=== PATIENT | female | born 1960 | race Caucasian/White ===

== ENCOUNTER → 2016-09-17 | Outpatient (CLI) | payer OTHER ==
[~2016-09-17] MED LIST: ALLERCLEAR10 MG PO; AMITRIPTYLINE25 MG PO; BACTRIM DS 8001 TA1 PO; CEPHALEXIN500 M1 PO; LASIX20 MG PO; LEVOTHYROXIN0.075 MG PO; LEVOTHYROXINE0.2 MG PO; LOSARTAN POTASS25 M1 PO; NAPROSYN500 MG PO; POTASSIUM CHLO10 MEQ PO; PROAIR HFA8.5 GM INH; SYMBICORT1 AE1 INH; ULTRAM50 MG PO; VITAMIN D31000 IU PO
== END | disposition home or self-care (01) ==
LOC: RAD 10:37
DX: N20.0 Calculus of kidney (principal); Z96.0 Presence of urogenital implants

== ENCOUNTER → 2016-12-10 | Outpatient (CLI) | payer OTHER | END | disposition home or self-care (01) | LOC: RAD 10:28 | DX: N20.0 Calculus of kidney (principal); Z96.0 Presence of urogenital implants ==

== ENCOUNTER → 2017-02-12 | Outpatient (CLI) | payer OTHER | END | disposition home or self-care (01) | LOC: RAD 00:29 | DX: N20.0 Calculus of kidney (principal) ==

== ENCOUNTER → 2017-02-20 | Outpatient (CLI) | payer OTHER ==
[2017-02-20 13:12] LABS: BASO # 0.1 10*3/uL (0.0-0.1); BASO % 0.7 % (0.0-1.0); EOS # 0.2 10*3/uL (0.0-0.4); HEMATOCRIT 42.1 % (37.0-47.0); LYMPH # 2.1 10*3/uL (1.3-4.4); LYMPH % 20.3 % (27.0-41.0); MEAN CELL VOLUME 93.8 fl (81.0-99.0); MEAN CORPUSCULAR HGB CONC 30.9 g/dl (33.0-37.0); MEAN PLATELET VOLUME 9.7 fl (9.6-12.3); MONO # 0.8 10*3/uL (0.1-1.0); MONO % 7.9 % (3.0-9.0); NEUT # 7.1 10*3/uL (2.3-7.9); NEUT % 68.8 % (47.0-73.0); PLATELET COUNT AUTOMATED 378 10*3/uL (130-400); RED BLOOD COUNT 4.49 10*6/uL (4.10-5.10); RED CELL DISTRI WIDTH 13.6 % (0-14.5); WHITE BLOOD COUNT 10.2 10*3/uL (4.8-10.8)
[2017-02-20 13:13] LABS: BILIRUBIN NEGATIVE (NEGATIVE); BLOOD TRACE-INTACT (NEGATIVE); CLARITY SL CLOUDY (CLEAR); COLOR YELLOW (YELLOW); GLUCOSE NEGATIVE (NEGATIVE); KETONE NEGATIVE (NEGATIVE); LEUKO ESTERASE 3+ (NEGATIVE); NITRITE NEGATIVE (NEGATIVE); PROTEIN NEGATIVE (NEGATIVE); SPECIFIC GRAVITY <= 1.005 (1.005-1.030); UROBILINOGEN 0.2 E.U./dl (0.2-1.0)
[2017-02-20 13:20] LABS: URINE TP/CRE RATIO 0.2 (<0.21)
[2017-02-20 13:26] LABS: BACTERIA TRACE; WBC 21-30 wbc/hpf (0-5)
[2017-02-20 13:48] LABS: ALBUMIN 3.4 gm/dl (3.1-4.5); PHOSPHOROUS 2.1 mg/dL (2.5-4.9); POTASSIUM 3.4 mmol/L (3.5-5.1); URIC ACID 5.6 mg/dL (2.6-6.0)
[2017-02-20 13:53] LABS: THYROID STIM HORMONE (HS) 0.266 uIU/ml (0.358-4.75)
[2017-02-20 14:45] LABS: PTH INTACT 350.9 pg/mL (14.0-72.0); VITAMIN D, 25-HYDROXY 21.2 ng/mL (30-100)
== END | disposition home or self-care (01) ==
LOC: LAB 12:39
PROVIDERS: Internal Medicine Nephrology
DX: N18.3 Chronic kidney disease, stage 3 (moderate) (principal); E83.52 Hypercalcemia; N20.0 Calculus of kidney

== ENCOUNTER → 2017-03-06 | Outpatient (CLI) | payer OTHER | END | disposition home or self-care (01) | LOC: US 02-27 00:27 | DX: N13.30 Unspecified hydronephrosis (principal); N20.0 Calculus of kidney; N18.3 Chronic kidney disease, stage 3 (moderate) ==

== ENCOUNTER → 2017-03-07 | Outpatient (CLI) | payer OTHER | END | disposition home or self-care (01) | LOC: RAD 10:01 | DX: Z01.818 Encounter for other preprocedural examination (principal); N20.0 Calculus of kidney; N39.0 Urinary tract infection, site not specified ==

== ENCOUNTER → 2017-03-21 | Outpatient (CLI) | payer OTHER | END | disposition home or self-care (01) | LOC: RAD 10:27 | DX: N20.0 Calculus of kidney (principal); Z96.0 Presence of urogenital implants ==

== ENCOUNTER → 2017-07-08 | Outpatient (CLI) | payer OTHER | END | disposition home or self-care (01) | LOC: RAD 11:36 | DX: N20.0 Calculus of kidney (principal); Z90.49 Acquired absence of other specified parts of digestive tract; Z96.0 Presence of urogenital implants ==

== ENCOUNTER → 2017-09-02 | Outpatient (CLI) | payer OTHER | END | disposition home or self-care (01) | LOC: LAB 10:11 | DX: N20.0 Calculus of kidney (principal) ==

== ENCOUNTER → 2017-09-17 | Outpatient (CLI) | payer OTHER ==
[2017-09-17 13:02] LABS: BASO # 0.1 10*3/uL (0.0-0.1); BASO % 0.7 % (0.0-1.0); EOS # 0.1 10*3/uL (0.0-0.4); EOS % 1.5 % (1.0-4.0); HEMATOCRIT 43.2 % (37.0-47.0); HEMOGLOBIN 13.6 g/dl (12.0-16.0); LYMPH # 1.6 10*3/uL (1.3-4.4); LYMPH % 20.7 % (27.0-41.0); MEAN CELL VOLUME 90.4 fl (81.0-99.0); MEAN CORPUSCULAR HGB 28.5 pg (27.0-31.0); MEAN CORPUSCULAR HGB CONC 31.5 g/dl (33.0-37.0); MEAN PLATELET VOLUME 10.1 fl (9.6-12.3); MONO # 0.9 10*3/uL (0.1-1.0); MONO % 11.9 % (3.0-9.0); NEUT # 4.9 10*3/uL (2.3-7.9); NEUT % 64.9 % (47.0-73.0); PLATELET COUNT AUTOMATED 348 10*3/uL (130-400); RED BLOOD COUNT 4.78 10*6/uL (4.10-5.10); RED CELL DISTRI WIDTH 14.1 % (0-14.5); WHITE BLOOD COUNT 7.5 10*3/uL (4.8-10.8)
[2017-09-17 13:12] LABS: BILIRUBIN NEGATIVE (NEGATIVE); BLOOD NEGATIVE (NEGATIVE); CLARITY CLEAR (CLEAR); COLOR YELLOW (YELLOW); GLUCOSE NEGATIVE (NEGATIVE); KETONE NEGATIVE (NEGATIVE); LEUKO ESTERASE 1+ (NEGATIVE); NITRITE NEGATIVE (NEGATIVE); UROBILINOGEN 0.2 E.U./dl (0.2-1.0)
[2017-09-17 13:27] LABS: ALBUMIN 3.3 gm/dl (3.1-4.5); CREATININE 1.5 mg/dL (0.55-1.02); PHOSPHOROUS 1.8 mg/dL (2.5-4.9); POTASSIUM 3.6 mmol/L (3.5-5.1)
[2017-09-17 13:36] LABS: RBC 0-2 rbc/hpf (0-2)
[2017-09-17 16:00] LABS: VITAMIN D, 25-HYDROXY 50.3 ng/mL (30-100)
== END | disposition home or self-care (01) ==
LOC: LAB 12:36
PROVIDERS: Internal Medicine Nephrology
DX: N18.3 Chronic kidney disease, stage 3 (moderate) (principal); E87.6 Hypokalemia; N25.81 Secondary hyperparathyroidism of renal origin

== ENCOUNTER → 2017-10-30 | Outpatient (CLI) | payer OTHER | END | disposition home or self-care (01) | LOC: RAD 11:05 | DX: M51.37 Other intervertebral disc degeneration, lumbosacral region (principal); M17.0 Bilateral primary osteoarthritis of knee; M16.0 Bilateral primary osteoarthritis of hip; M19.021 Primary osteoarthritis, right elbow; M19.022 Primary osteoarthritis, left elbow; M19.011 Primary osteoarthritis, right shoulder; M19.012 Primary osteoarthritis, left shoulder; M47.896 Other spondylosis, lumbar region ==

== ENCOUNTER → 2017-11-24 | Outpatient (CLI) | payer OTHER | END | disposition home or self-care (01) | LOC: RAD 13:24 | DX: N20.0 Calculus of kidney (principal); Z90.49 Acquired absence of other specified parts of digestive tract; Z98.890 Other specified postprocedural states ==

== ENCOUNTER → 2017-12-19 | Outpatient (CLI) | payer OTHER | END | disposition home or self-care (01) | LOC: ORTHO 00:36 | DX: M19.032 Primary osteoarthritis, left wrist (principal) ==

== ENCOUNTER → 2018-01-28 | Outpatient (CLI) | payer OTHER ==
[2018-01-28 14:25] LABS: BASO # 0.1 10*3/uL (0.0-0.1); BASO % 0.5 % (0.0-1.0); EOS # 0.2 10*3/uL (0.0-0.4); EOS % 1.8 % (1.0-4.0); HEMATOCRIT 44.4 % (37.0-47.0); HEMOGLOBIN 13.6 g/dl (12.0-16.0); LYMPH # 1.9 10*3/uL (1.3-4.4); LYMPH % 16.7 % (27.0-41.0); MEAN CELL VOLUME 93.5 fl (81.0-99.0); MEAN CORPUSCULAR HGB 28.6 pg (27.0-31.0); MEAN CORPUSCULAR HGB CONC 30.6 g/dl (33.0-37.0); MEAN PLATELET VOLUME 10.2 fl (9.6-12.3); MONO # 0.9 10*3/uL (0.1-1.0); MONO % 8.1 % (3.0-9.0); NEUT # 8.3 10*3/uL (2.3-7.9); NEUT % 72.7 % (47.0-73.0); PLATELET COUNT AUTOMATED 336 10*3/uL (130-400); RED BLOOD COUNT 4.75 10*6/uL (4.10-5.10); RED CELL DISTRI WIDTH 15.5 % (0-14.5); WHITE BLOOD COUNT 11.4 10*3/uL (4.8-10.8)
[2018-01-28 14:28] LABS: BILIRUBIN NEGATIVE (NEGATIVE); BLOOD 1+ (NEGATIVE); CLARITY CLEAR (CLEAR); COLOR YELLOW (YELLOW); GLUCOSE NEGATIVE (NEGATIVE); KETONE NEGATIVE (NEGATIVE); LEUKO ESTERASE 2+ (NEGATIVE); NITRITE NEGATIVE (NEGATIVE); PH 6.5 (5.0-9.0); UROBILINOGEN 0.2 E.U./dl (0.2-1.0)
[2018-01-28 14:33] LABS: URINE CREATININE RANDOM 50.5 mg/dL
[2018-01-28 14:36] LABS: ALBUMIN 3.2 gm/dl (3.1-4.5); CREATININE 1.4 mg/dL (0.55-1.02); PHOSPHOROUS 2.6 mg/dL (2.5-4.9); POTASSIUM 4.1 mmol/L (3.5-5.1)
[2018-01-28 14:45] LABS: BACTERIA 1+; WBC 21-30 wbc/hpf (0-5)
== END | disposition home or self-care (01) ==
LOC: LAB 13:24
PROVIDERS: Internal Medicine Nephrology
DX: N20.0 Calculus of kidney (principal); N18.3 Chronic kidney disease, stage 3 (moderate); Z90.49 Acquired absence of other specified parts of digestive tract

== ENCOUNTER → 2018-03-03 | Outpatient (CLI) | payer OTHER | END | disposition home or self-care (01) | LOC: RAD 13:58 | DX: N20.0 Calculus of kidney (principal); Z90.49 Acquired absence of other specified parts of digestive tract ==

== ENCOUNTER → 2018-03-27 | Outpatient (CLI) | payer OTHER | END | disposition home or self-care (01) | LOC: RAD 01:35 → ORTHO 01:35 → RAD 07:00 → ORTHO 17:26 | DX: N20.0 Calculus of kidney (principal); Z90.49 Acquired absence of other specified parts of digestive tract ==

== ENCOUNTER → 2018-06-09 | Outpatient (CLI) | payer OTHER | END | disposition home or self-care (01) | LOC: RAD 09:36 | DX: N20.0 Calculus of kidney (principal); Z90.49 Acquired absence of other specified parts of digestive tract; Z90.89 Acquired absence of other organs ==

== ENCOUNTER → 2018-07-13 | Outpatient (CLI) | payer OTHER | LOC: ORTHO 00:01 → RAD 01:01 → ORTHO 01:01 | DX: N20.0 Calculus of kidney (principal); Z90.49 Acquired absence of other specified parts of digestive tract ==

== ENCOUNTER → 2018-08-11 | Outpatient (CLI) | payer OTHER | END | disposition home or self-care (01) | LOC: RAD 10:50 | DX: N20.0 Calculus of kidney (principal); N28.89 Other specified disorders of kidney and ureter ==

== ENCOUNTER → 2019-07-05 | Outpatient (CLI) | payer OTHER | END | disposition home or self-care (01) | LOC: RAD 09:55 | DX: N20.0 Calculus of kidney (principal); M16.0 Bilateral primary osteoarthritis of hip; M47.819 Spondylosis without myelopathy or radiculopathy, site unspecified; Z90.49 Acquired absence of other specified parts of digestive tract ==

== ENCOUNTER → 2019-07-08 | Outpatient (CLI) | payer OTHER ==
[2019-07-08 11:59] LABS: BILIRUBIN NEGATIVE (NEGATIVE); BLOOD TRACE-INTACT (NEGATIVE); CLARITY CLOUDY (CLEAR); COLOR YELLOW (YELLOW); GLUCOSE NEGATIVE (NEGATIVE); KETONE NEGATIVE (NEGATIVE); LEUKO ESTERASE 2+ (NEGATIVE); NITRITE NEGATIVE (NEGATIVE); UROBILINOGEN 0.2 E.U./dl (0.2-1.0)
[2019-07-08 12:16] LABS: BASO % 0.5 % (0.0-1.0); EOS # 0.1 10*3/uL (0.0-0.4); EOS % 1.6 % (1.0-4.0); HEMATOCRIT 46.7 % (37.0-47.0); HEMOGLOBIN 14.2 g/dl (12.0-16.0); LYMPH # 1.4 10*3/uL (1.3-4.4); LYMPH % 19.2 % (27.0-41.0); MEAN CELL VOLUME 95.5 fl (81.0-99.0); MEAN CORPUSCULAR HGB CONC 30.4 g/dl (33.0-37.0); MEAN PLATELET VOLUME 10.1 fl (9.6-12.3); MONO # 0.6 10*3/uL (0.1-1.0); MONO % 7.7 % (3.0-9.0); NEUT # 5.2 10*3/uL (2.3-7.9); NEUT % 70.7 % (47.0-73.0); PLATELET COUNT AUTOMATED 401 10*3/uL (130-400); RED BLOOD COUNT 4.89 10*6/uL (4.10-5.10); WHITE BLOOD COUNT 7.4 10*3/uL (4.8-10.8)
[2019-07-08 12:37] LABS: ALBUMIN 3.2 gm/dl (3.1-4.5); CREATININE 1.44 mg/dL (0.55-1.02); PHOSPHOROUS 1.9 mg/dL (2.5-4.9); POTASSIUM 4.4 mmol/L (3.5-5.1)
[2019-07-08 12:56] LABS: BACTERIA 2+; RBC 21-30 rbc/hpf (0-2); WBC TNTC wbc/hpf (0-5)
[2019-07-08 13:00] LABS: PTH INTACT 312.5 pg/mL (18.5-88.0); VITAMIN D, 25-HYDROXY 23.1 ng/mL (30-100)
== END | disposition home or self-care (01) ==
LOC: LAB 11:26
PROVIDERS: Internal Medicine Nephrology
DX: E21.3 Hyperparathyroidism, unspecified (principal); N18.3 Chronic kidney disease, stage 3 (moderate)

== ENCOUNTER → 2019-07-12 | Outpatient (CLI) | payer OTHER | END | disposition home or self-care (01) | LOC: LAB 10:17 | DX: N89.0 Mild vaginal dysplasia (principal) ==

== ENCOUNTER → 2019-09-08 | Outpatient (CLI) | payer OTHER ==
[2019-09-08 15:04] LABS: BASO # 0.1 10*3/uL (0.0-0.1); BASO % 0.7 % (0.0-1.0); EOS # 0.1 10*3/uL (0.0-0.4); EOS % 1.1 % (1.0-4.0); HEMATOCRIT 47.4 % (37.0-47.0); HEMOGLOBIN 14.6 g/dl (12.0-16.0); LYMPH # 1.6 10*3/uL (1.3-4.4); LYMPH % 16.5 % (27.0-41.0); MEAN CORPUSCULAR HGB CONC 30.8 g/dl (33.0-37.0); MEAN PLATELET VOLUME 10.2 fl (9.6-12.3); MONO # 0.9 10*3/uL (0.1-1.0); MONO % 9.6 % (3.0-9.0); NEUT # 6.9 10*3/uL (2.3-7.9); NEUT % 71.7 % (47.0-73.0); PLATELET COUNT AUTOMATED 364 10*3/uL (130-400); RED BLOOD COUNT 5.04 10*6/uL (4.10-5.10); RETICULOCYTE % 0.84 % (0.50-2.50); WHITE BLOOD COUNT 9.6 10*3/uL (4.8-10.8)
[2019-09-08 15:06] LABS: BILIRUBIN NEGATIVE (NEGATIVE); BLOOD NEGATIVE (NEGATIVE); CLARITY CLEAR (CLEAR); COLOR YELLOW (YELLOW); GLUCOSE NEGATIVE (NEGATIVE); KETONE NEGATIVE (NEGATIVE); LEUKO ESTERASE 1+ (NEGATIVE); NITRITE NEGATIVE (NEGATIVE)
[2019-09-08 15:13] LABS: WBC 16-20 wbc/hpf (0-5)
[2019-09-08 15:14] LABS: BACTERIA TRACE; EPITHELIAL CELLS 20-25
[2019-09-08 15:35] LABS: ALBUMIN 3.6 gm/dl (3.1-4.5); ALKALINE PHOSPHATASE 91 U/L (45-117); BUN 29 mg/dl (7-24); CHLORIDE 103 mmol/L (98-107); CHOLESTEROL 200 mg/dL (<200); CREATININE 1.87 mg/dL (0.55-1.02); HDL CHOLESTEROL 60 mg/dl (40-60); IRON 58 ug/dL (50-170); LDL CHOLESTEROL 118 mg/dL (9-159); POTASSIUM 3.9 mmol/L (3.5-5.1); SGOT/AST 20 IU/L (3-35); SGPT/ALT 28 U/L (12-78); SODIUM 139 mmol/L (136-145); T3 UPTAKE 34 % (31-39); THYROXINE (T4) TOTAL 17.6 ug/dl (4.8-13.9); TOTAL IRON BINDING CAPACITY 355 ug/dl (250-450); TOTAL PROTEIN 7.6 gm/dL (6.4-8.2); TRIGLYCERIDES 109 mg/dl (<150); VLDL CHOLESTEROL 22 mg/dL (6-40)
[2019-09-08 15:42] LABS: VITAMIN D, 25-HYDROXY 21.7 ng/mL (30-100)
[2019-09-08 15:48] LABS: GAMMA GLUTAMYL TRANSPEPTIDASE < 3 U/L (5-55)
== END | disposition home or self-care (01) ==
LOC: LAB 14:38
PROVIDERS: Family Medicine
DX: E55.9 Vitamin D deficiency, unspecified (principal); R53.83 Other fatigue; R79.89 Other specified abnormal findings of blood chemistry

== ENCOUNTER → 2019-10-11 | Outpatient (CLI) | payer OTHER | END | disposition home or self-care (01) | LOC: RAD 10:37 | DX: N20.0 Calculus of kidney (principal); Z90.49 Acquired absence of other specified parts of digestive tract ==

== ENCOUNTER → 2020-04-04 | Outpatient (CLI) | payer OTHER | END | disposition home or self-care (01) | LOC: RAD 11:56 | DX: N20.0 Calculus of kidney (principal); I87.8 Other specified disorders of veins; Z90.49 Acquired absence of other specified parts of digestive tract ==

== ENCOUNTER → 2020-05-02 | Outpatient (CLI) | payer OTHER ==
[2020-05-02 14:33] LABS: BASO # 0.1 10*3/uL (0.0-0.1); BASO % 0.7 % (0.0-1.0); EOS # 0.2 10*3/uL (0.0-0.4); EOS % 2.1 % (1.0-4.0); HEMATOCRIT 45.9 % (37.0-47.0); LYMPH # 1.3 10*3/uL (1.3-4.4); LYMPH % 15.3 % (27.0-41.0); MEAN CELL VOLUME 94.1 fl (81.0-99.0); MEAN CORPUSCULAR HGB 28.1 pg (27.0-31.0); MEAN CORPUSCULAR HGB CONC 29.8 g/dl (33.0-37.0); MEAN PLATELET VOLUME 10.4 fl (9.6-12.3); MONO # 0.7 10*3/uL (0.1-1.0); MONO % 7.7 % (3.0-9.0); NEUT # 6.5 10*3/uL (2.3-7.9); NEUT % 73.9 % (47.0-73.0); PLATELET COUNT AUTOMATED 341 10*3/uL (130-400); RED BLOOD COUNT 4.88 10*6/uL (4.10-5.10); RED CELL DISTRI WIDTH 14.8 % (0-14.5); WHITE BLOOD COUNT 8.7 10*3/uL (4.8-10.8)
[2020-05-02 14:49] LABS: BILIRUBIN NEGATIVE; BLOOD TRACE-INTACT (NEGATIVE); CLARITY CLOUDY (CLEAR); COLOR YELLOW (YELLOW); GLUCOSE NEGATIVE; KETONE NEGATIVE; LEUKO ESTERASE 3+ (NEGATIVE); NITRITE NEGATIVE (NEGATIVE); PH 6.5 (4.5-8.0); SPECIFIC GRAVITY 1.015 (1.001-1.030)
[2020-05-02 14:50] LABS: WBC TNTC wbc/hpf (0-5)
[2020-05-02 14:51] LABS: BACTERIA 1+; EPITHELIAL CELLS TNTC
[2020-05-02 15:05] LABS: ALBUMIN 3.3 gm/dl (3.1-4.5); POTASSIUM 4.1 mmol/L (3.5-5.1)
[2020-05-02 15:17] LABS: CREATININE 1.33 mg/dL (0.55-1.02); THYROID STIM HORMONE (HS) 0.225 uIU/ml (0.358-4.75); THYROXINE (T4) TOTAL 16.1 ug/dl (4.8-13.9); TOTAL PROTEIN 7.9 gm/dL (6.4-8.2); URIC ACID 7.9 mg/dL (2.6-6.0)
[2020-05-02 15:45] LABS: FERRITIN 57.2 ng/mL (10.0-291.0); VITAMIN D, 25-HYDROXY 17.8 ng/mL (30-100)
[2020-05-03 08:08] LABS: RHEUMATOID ARTHRITIS FACTOR 11.5 IU/mL (0.0-13.9)
[2020-05-03 13:06] LABS: ANTI-DSDNA ANTIBODIES <1 IU/mL (0-9)
== END | disposition home or self-care (01) ==
LOC: LAB 13:51
PROVIDERS: ATTEND Family Medicine
DX: E78.5 Hyperlipidemia, unspecified (principal); R79.89 Other specified abnormal findings of blood chemistry; R53.83 Other fatigue; E55.9 Vitamin D deficiency, unspecified; R74.8 Abnormal levels of other serum enzymes

== ENCOUNTER → 2020-05-25 | Outpatient (CLI) | payer OTHER | END | disposition home or self-care (01) | LOC: NM 07:36 | PROVIDERS: ATTEND Internal Medicine Endocrinology, Diabetes & Metabolism | DX: E21.3 Hyperparathyroidism, unspecified (principal) ==

== ENCOUNTER → 2020-06-02 | Outpatient (CLI) | payer OTHER | END | disposition home or self-care (01) | LOC: US 04:48 | PROVIDERS: ATTEND Internal Medicine Endocrinology, Diabetes & Metabolism | DX: E04.2 Nontoxic multinodular goiter (principal); Z86.39 Personal history of other endocrine, nutritional and metabolic disease ==

== ENCOUNTER → 2020-06-07 | Outpatient (CLI) | payer OTHER ==
[2020-06-07 14:38] LABS: ALBUMIN 3.3 gm/dl (3.1-4.5); BILIRUBIN, DIRECT 0.1 mg/dL (0.0-0.2); CREATININE 1.2 mg/dL (0.55-1.02); TOTAL PROTEIN 7.8 gm/dL (6.4-8.2)
== END | disposition home or self-care (01) ==
LOC: LAB 13:47
PROVIDERS: ATTEND Nurse Practitioner Gerontology
DX: Z79.899 Other long term (current) drug therapy (principal)

== ENCOUNTER → 2020-06-12 | Outpatient (CLI) | payer OTHER | END | disposition home or self-care (01) | LOC: RAD 05-23 09:00 | PROVIDERS: ATTEND Internal Medicine Endocrinology, Diabetes & Metabolism | DX: M85.852 Other specified disorders of bone density and structure, left thigh (principal); E21.3 Hyperparathyroidism, unspecified ==

== ENCOUNTER → 2020-07-21 | Outpatient (CLI) | payer OTHER ==
[2020-07-21 08:28] LABS: ALBUMIN 3.2 gm/dl (3.1-4.5); CREATININE 1.28 mg/dL (0.55-1.02); POTASSIUM 4.3 mmol/L (3.5-5.1); TOTAL PROTEIN 7.5 gm/dL (6.4-8.2)
[2020-07-21 08:29] LABS: FREE T4 1.51 ng/dl (0.76-1.46)
[2020-07-21 08:35] LABS: THYROID STIM HORMONE (HS) 0.314 uIU/ml (0.358-4.75)
[2020-07-21 09:05] LABS: PTH INTACT 348.2 pg/mL (18.5-88.0)
== END | disposition home or self-care (01) ==
LOC: LAB 07:25
PROVIDERS: ATTEND Internal Medicine Endocrinology, Diabetes & Metabolism
DX: N20.0 Calculus of kidney (principal); E03.9 Hypothyroidism, unspecified; E21.3 Hyperparathyroidism, unspecified

== ENCOUNTER → 2020-07-25 | Outpatient (CLI) | payer OTHER ==
[2020-08-07 14:10] LABS: BUSHITE 1.15 ratio (0.00-3.00); CALCIUM OXALATE 2.55 ratio (0.00-6.00); CALCIUM, URINE 4.7 mg/dL (Not Estab.); CALCIUM, URINE 65.8 mg/24 hr (100.0-300.0); CITRIC ACID (CITRATE) 109 mg/24 hr (320-1240); MAGNESIUM, URINE 2.2 mg/dL (Not Estab.); MONOSODIUM URATE 0.99 ratio (0.00-4.00); OSMOLALITY, URINE 255 (300-900); SODIUM, URINE 52 mmol/L (Not Estab.); SODIUM, URINE 73 (39-258); STRUVITE 7.46 ratio (0.00-1.00); URIC ACID 0.01 ratio (0.00-1.20); pH 24 HR URINE 8.6 (.)
== END | disposition home or self-care (01) ==
LOC: LAB 07:41
PROVIDERS: ATTEND Internal Medicine Endocrinology, Diabetes & Metabolism
DX: N20.0 Calculus of kidney (principal); R73.03 Prediabetes; E03.9 Hypothyroidism, unspecified; E21.3 Hyperparathyroidism, unspecified; E55.9 Vitamin D deficiency, unspecified

== ENCOUNTER 2020-10-18 23:46 | Emergency (ER) | payer OTHER ==
[~2020-10-18] VITALS: Ht 160 cm; Wt 151.0 kg
== END 2020-10-19 03:37 | disposition home or self-care (01) ==
LOC: ED 23:46
DX: S40.012A Contusion of left shoulder, initial encounter (principal); I10 Essential (primary) hypertension; J44.9 Chronic obstructive pulmonary disease, unspecified; E03.9 Hypothyroidism, unspecified; Z88.8 Allergy status to other drugs, medicaments and biological substances; Z79.899 Other long term (current) drug therapy; Z79.2 Long term (current) use of antibiotics; Z90.49 Acquired absence of other specified parts of digestive tract; Z98.890 Other specified postprocedural states; W19.XXXA Unspecified fall, initial encounter; Y93.89 Activity, other specified; Y92.89 Other specified places as the place of occurrence of the external cause; Y99.8 Other external cause status

== ENCOUNTER → 2020-12-05 | Outpatient (CLI) | payer OTHER ==
[2020-12-05 08:26] LABS: ALBUMIN 3.2 gm/dl (3.1-4.5); CREATININE 2.13 mg/dL (0.55-1.02); FREE T4 1.48 ng/dl (0.76-1.46); POTASSIUM 3.9 mmol/L (3.5-5.1); TOTAL PROTEIN 8.4 gm/dL (6.4-8.2)
[2020-12-05 08:32] LABS: THYROID STIM HORMONE (HS) 2.47 uIU/ml (0.358-4.75)
[2020-12-05 09:12] LABS: VITAMIN D, 25-HYDROXY 33.3 ng/mL (30-100)
[2020-12-05 09:13] LABS: PTH INTACT 408.7 pg/mL (18.5-88.0)
== END | disposition home or self-care (01) ==
LOC: LAB 07:31
PROVIDERS: ATTEND Internal Medicine Endocrinology, Diabetes & Metabolism
DX: E03.9 Hypothyroidism, unspecified (principal); E55.9 Vitamin D deficiency, unspecified; M85.862 Other specified disorders of bone density and structure, left lower leg; R73.02 Impaired glucose tolerance (oral); E34.9 Endocrine disorder, unspecified

== ENCOUNTER → 2021-03-01 | Outpatient (CLI) | payer OTHER ==
[2021-03-01 14:33] LABS: BASO % 0.4 % (0.0-1.0); EOS # 0.1 10*3/uL (0.0-0.4); EOS % 1.1 % (1.0-4.0); HEMATOCRIT 42.9 % (37.0-47.0); LYMPH # 1.3 10*3/uL (1.3-4.4); LYMPH % 12.4 % (27.0-41.0); MEAN CELL VOLUME 94.5 fl (81.0-99.0); MEAN CORPUSCULAR HGB 28.4 pg (27.0-31.0); MEAN CORPUSCULAR HGB CONC 30.1 g/dl (33.0-37.0); MEAN PLATELET VOLUME 9.7 fl (9.6-12.3); MONO # 0.9 10*3/uL (0.1-1.0); MONO % 8.2 % (3.0-9.0); NEUT # 8.2 10*3/uL (2.3-7.9); NEUT % 77.8 % (47.0-73.0); PLATELET COUNT AUTOMATED 347 10*3/uL (130-400); RED BLOOD COUNT 4.54 10*6/uL (4.10-5.10); RED CELL DISTRI WIDTH 14.1 % (0-14.5); WHITE BLOOD COUNT 10.5 10*3/uL (4.8-10.8)
[2021-03-01 14:34] LABS: BILIRUBIN Negative (Negative); BLOOD 2+ (Negative); CLARITY Clear (Clear); COLOR Yellow (Yellow); GLUCOSE Negative (Negative); KETONE Negative (Negative); LEUKO ESTERASE 3+ (Negative); NITRITE Negative (Negative)
[2021-03-01 14:41] LABS: BACTERIA 3+; RBC 0-2 rbc/hpf (0-2); WBC TNTC wbc/hpf (0-5)
[2021-03-01 15:02] LABS: ALBUMIN 3.1 gm/dl (3.1-4.5); CREATININE 2.03 mg/dL (0.55-1.02); POTASSIUM 4.2 mmol/L (3.5-5.1)
[2021-03-01 15:05] LABS: ALBUMIN 3.1 gm/dl (3.1-4.5); CREATININE 2.07 mg/dL (0.55-1.02); FREE T4 1.66 ng/dl (0.76-1.46); POTASSIUM 4.3 mmol/L (3.5-5.1)
[2021-03-01 15:11] LABS: PTH INTACT 545.7 pg/mL (18.5-88.0); VITAMIN D, 25-HYDROXY 32.1 ng/mL (30-100)
[2021-03-01 15:12] LABS: THYROID STIM HORMONE (HS) 0.134 uIU/ml (0.358-4.75)
== END | disposition home or self-care (01) ==
LOC: LAB 14:01
PROVIDERS: Internal Medicine Nephrology; ATTEND Internal Medicine Endocrinology, Diabetes & Metabolism
DX: E03.9 Hypothyroidism, unspecified (principal); E55.9 Vitamin D deficiency, unspecified; E21.3 Hyperparathyroidism, unspecified; N17.9 Acute kidney failure, unspecified; Z86.39 Personal history of other endocrine, nutritional and metabolic disease

== ENCOUNTER → 2021-03-16 | Outpatient (CLI) | payer OTHER ==
[2021-03-16 16:56] LABS: BILIRUBIN Negative (Negative); BLOOD 2+ (Negative); CLARITY Cloudy (Clear); COLOR Yellow (Yellow); GLUCOSE Negative (Negative); KETONE Negative (Negative); LEUKO ESTERASE 3+ (Negative); NITRITE Negative (Negative); UROBILINOGEN 0.2 E.U./dl (0.0-1.0)
[2021-03-16 17:22] LABS: BACTERIA 1+
== END | disposition home or self-care (01) ==
LOC: LAB 14:40
PROVIDERS: ATTEND Family Medicine
DX: R53.83 Other fatigue (principal); R79.89 Other specified abnormal findings of blood chemistry

== ENCOUNTER → 2021-04-25 | Outpatient (CLI) | payer OTHER ==
[2021-04-25 10:38] LABS: ALBUMIN 3.6 gm/dl (3.1-4.5); CREATININE 1.9 mg/dL (0.55-1.02); POTASSIUM 4.1 mmol/L (3.5-5.1)
[2021-04-25 10:47] LABS: FREE T4 1.31 ng/dl (0.76-1.46)
[2021-04-25 10:52] LABS: THYROID STIM HORMONE (HS) 3.72 uIU/ml (0.358-4.75)
[2021-04-25 11:44] LABS: PTH INTACT 451.8 pg/mL (18.5-88.0); VITAMIN D, 25-HYDROXY 40.8 ng/mL (30-100)
== END | disposition home or self-care (01) ==
LOC: US 10:03 → LAB 10:03 → US 10:30
PROVIDERS: ATTEND Internal Medicine Endocrinology, Diabetes & Metabolism
DX: E04.1 Nontoxic single thyroid nodule (principal); E03.9 Hypothyroidism, unspecified; R73.02 Impaired glucose tolerance (oral)

== ENCOUNTER 2021-06-18 13:48 | Emergency (ER) | payer OTHER ==
[2021-06-18 16:17] LABS: BILIRUBIN Negative (Negative); BLOOD 1+ (Negative); CLARITY Clear (Clear); COLOR Yellow (Yellow); GLUCOSE Negative (Negative); KETONE Negative (Negative); LEUKO ESTERASE 2+ (Negative); NITRITE Negative (Negative); SPECIFIC GRAVITY <= 1.005 (1.001-1.030); UROBILINOGEN 0.2 E.U./dl (0.0-1.0)
[2021-06-18 16:27] LABS: BACTERIA 1+
[2021-06-18 19:19] LABS: BASO # 0.1 10*3/uL (0.0-0.1); BASO % 0.6 % (0.0-1.0); EOS # 0.1 10*3/uL (0.0-0.4); EOS % 1.2 % (1.0-4.0); HEMATOCRIT 42.2 % (37.0-47.0); LYMPH # 1.2 10*3/uL (1.3-4.4); MEAN CELL VOLUME 94.6 fl (81.0-99.0); MEAN CORPUSCULAR HGB 28.7 pg (27.0-31.0); MEAN CORPUSCULAR HGB CONC 30.3 g/dl (33.0-37.0); MONO # 0.6 10*3/uL (0.1-1.0); MONO % 7.8 % (3.0-9.0); NEUT # 6.2 10*3/uL (2.3-7.9); NEUT % 75.2 % (47.0-73.0); PLATELET COUNT AUTOMATED 312 10*3/uL (130-400); RED BLOOD COUNT 4.46 10*6/uL (4.10-5.10); RED CELL DISTRI WIDTH 14.8 % (0-14.5); WHITE BLOOD COUNT 8.3 10*3/uL (4.8-10.8)
[2021-06-18 19:35] LABS: ALBUMIN 2.9 gm/dl (3.1-4.5); CREATININE 1.72 mg/dL (0.55-1.02); POTASSIUM 3.8 mmol/L (3.5-5.1); TOTAL PROTEIN 7.3 gm/dL (6.4-8.2)
[2021-06-19] MEDS ORDERED: SEPTDS PO (13:22)
== END 2021-06-19 13:31 | disposition home or self-care (01) ==
LOC: ED 13:48
PROVIDERS: Emergency Medicine; Physician Assistant
DX: N23 Unspecified renal colic (principal); Z88.1 Allergy status to other antibiotic agents; Z88.8 Allergy status to other drugs, medicaments and biological substances; Z79.899 Other long term (current) drug therapy

== ENCOUNTER → 2021-10-16 | Outpatient (CLI) | payer OTHER ==
[~2021-10-16] MED LIST changes: +SEPTDS PO
[2021-10-16 09:05] LABS: BASO # 0.1 10*3/uL (0.0-0.1); BASO % 0.6 % (0.0-1.0); EOS # 0.2 10*3/uL (0.0-0.4); EOS % 1.8 % (1.0-4.0); HEMATOCRIT 44.6 % (37.0-47.0); LYMPH # 1.4 10*3/uL (1.3-4.4); LYMPH % 16.9 % (27.0-41.0); MEAN CELL VOLUME 93.1 fl (81.0-99.0); MEAN CORPUSCULAR HGB 28.8 pg (27.0-31.0); MEAN CORPUSCULAR HGB CONC 30.9 g/dl (33.0-37.0); MONO # 0.8 10*3/uL (0.1-1.0); MONO % 8.9 % (3.0-9.0); NEUT % 71.6 % (47.0-73.0); PLATELET COUNT AUTOMATED 360 10*3/uL (130-400); RED BLOOD COUNT 4.79 10*6/uL (4.10-5.10); RED CELL DISTRI WIDTH 14.2 % (0-14.5); WHITE BLOOD COUNT 8.4 10*3/uL (4.8-10.8)
[2021-10-16 09:28] LABS: CREATININE 1.94 mg/dL (0.55-1.02); POTASSIUM 4.3 mmol/L (3.5-5.1)
[2021-10-16 09:32] LABS: VITAMIN D, 25-HYDROXY 35.9 ng/mL (30-100)
== END ==
LOC: LAB 07:54
PROVIDERS: ATTEND Internal Medicine Nephrology
DX: N18.30 Chronic kidney disease, stage 3 unspecified (principal); N17.9 Acute kidney failure, unspecified

== ENCOUNTER → 2022-07-11 | Outpatient (CLI) | payer OTHER ==
[2022-07-11 10:40] LABS: BASO # 0.1 10*3/uL (0.0-0.1); BASO % 0.5 % (0.0-1.0); EOS # 0.1 10*3/uL (0.0-0.4); EOS % 1.5 % (1.0-4.0); HEMATOCRIT 44.8 % (37.0-47.0); LYMPH # 1.8 10*3/uL (1.3-4.4); LYMPH % 19.1 % (27.0-41.0); MEAN CELL VOLUME 94.1 fl (81.0-99.0); MEAN CORPUSCULAR HGB CONC 30.8 g/dl (33.0-37.0); MEAN PLATELET VOLUME 9.7 fl (9.6-12.3); MONO # 0.7 10*3/uL (0.1-1.0); MONO % 7.1 % (3.0-9.0); NEUT # 6.8 10*3/uL (2.3-7.9); NEUT % 71.6 % (47.0-73.0); PLATELET COUNT AUTOMATED 334 10*3/uL (130-400); RED BLOOD COUNT 4.76 10*6/uL (4.10-5.10); RED CELL DISTRI WIDTH 14.2 % (0-14.5); RETICULOCYTE % 0.79 % (0.50-2.50); WHITE BLOOD COUNT 9.5 10*3/uL (4.8-10.8)
[2022-07-11 10:55] LABS: CREATININE 1.69 mg/dL (0.55-1.02); POTASSIUM 4.1 mmol/L (3.5-5.1); THYROXINE (T4) TOTAL 17.5 ug/dl (4.8-13.9); TOTAL PROTEIN 7.9 gm/dL (6.4-8.2)
[2022-07-11 11:03] LABS: THYROID STIM HORMONE (HS) 0.606 uIU/ml (0.358-4.75)
[2022-07-11 13:01] LABS: VITAMIN D, 25-HYDROXY 28.8 ng/mL (30-100)
[2022-07-11 13:32] LABS: FERRITIN 58.1 ng/mL (10.0-291.0)
== END | disposition home or self-care (01) ==
LOC: LAB 10:09
PROVIDERS: ATTEND Family Medicine
DX: E78.5 Hyperlipidemia, unspecified (principal); E55.9 Vitamin D deficiency, unspecified; R79.89 Other specified abnormal findings of blood chemistry; R53.83 Other fatigue; R74.8 Abnormal levels of other serum enzymes

== ENCOUNTER → 2022-10-14 | Outpatient (CLI) | payer OTHER | END | disposition home or self-care (01) | LOC: RAD 11:28 | PROVIDERS: ATTEND Nurse Practitioner Gerontology | DX: N20.0 Calculus of kidney (principal); I87.8 Other specified disorders of veins ==

== ENCOUNTER 2022-11-13 01:39 | Emergency (ER) | payer OTHER ==
[~2022-11-13] VITALS: Ht 165.1 cm; Wt 154.2 kg
[2022-11-13 02:04] LABS: HEMATOCRIT 43.2 % (37.0-47.0); MEAN CELL VOLUME 92.9 fl (81.0-99.0); MEAN CORPUSCULAR HGB 28.6 pg (27.0-31.0); MEAN CORPUSCULAR HGB CONC 30.8 g/dl (33.0-37.0); MEAN PLATELET VOLUME 9.4 fl (9.6-12.3); PLATELET COUNT AUTOMATED 248 10*3/uL (130-400); RED BLOOD COUNT 4.65 10*6/uL (4.10-5.10); RED CELL DISTRI WIDTH 14.4 % (0-14.5)
[2022-11-13 02:07] LABS: MANUAL DIFF REFLEX YES
[2022-11-13 02:20] LABS: POTASSIUM 4.7 mmol/L (3.4-5.1); TOTAL PROTEIN 7.2 gm/dL (6.0-8.0)
[2022-11-13 02:26] LABS: PLATELET SUFFICIENCY NORMAL (NORMAL); TOTAL CELLS COUNTED 100 #CELLS
[2022-11-13 05:47] LABS: BILIRUBIN Negative (Negative); BLOOD 3+ (Negative); CLARITY Cloudy (Clear); COLOR Orange (Yellow); GLUCOSE Negative (Negative); KETONE Negative (Negative); LEUKO ESTERASE 3+ (Negative); NITRITE Negative (Negative)
[2022-11-13 06:12] LABS: BACTERIA 4+; EPITHELIAL CELLS 0-2; RBC TNTC rbc/hpf (0-2); WBC TNTC wbc/hpf (0-5)
== END 2022-11-13 15:18 | disposition short-term general hospital (02) ==
LOC: ED 01:39
PROVIDERS: Emergency Medicine
DX: A41.9 Sepsis, unspecified organism (principal); N13.9 Obstructive and reflux uropathy, unspecified; N17.9 Acute kidney failure, unspecified; D72.829 Elevated white blood cell count, unspecified; I10 Essential (primary) hypertension; M79.7 Fibromyalgia; Z87.442 Personal history of urinary calculi; J44.9 Chronic obstructive pulmonary disease, unspecified; R73.9 Hyperglycemia, unspecified; E87.6 Hypokalemia; Z90.89 Acquired absence of other organs; Z98.890 Other specified postprocedural states; Z90.49 Acquired absence of other specified parts of digestive tract; Z88.1 Allergy status to other antibiotic agents; Z88.8 Allergy status to other drugs, medicaments and biological substances

== ENCOUNTER → 2023-01-14 | Outpatient (CLI) | payer OTHER | END | disposition home or self-care (01) | LOC: RAD 16:21 | PROVIDERS: ATTEND Urology | DX: N20.0 Calculus of kidney (principal); Z90.49 Acquired absence of other specified parts of digestive tract; Z95.828 Presence of other vascular implants and grafts ==

== ENCOUNTER 2023-03-17 10:02 | Emergency (ER) | payer OTHER ==
[~2023-03-17] VITALS: Ht 160 cm; Wt 152.0 kg
[2023-03-17 10:50] LABS: BASO # 0.1 10*3/uL (0.0-0.1); BASO % 0.6 % (0.0-1.0); EOS % 0.2 % (1.0-4.0); HEMATOCRIT 42.3 % (37.0-47.0); LYMPH % 11.2 % (27.0-41.0); MEAN CELL VOLUME 93.6 fl (81.0-99.0); MEAN PLATELET VOLUME 9.2 fl (9.6-12.3); MONO # 1.3 10*3/uL (0.1-1.0); MONO % 15.1 % (3.0-9.0); NEUT # 6.3 10*3/uL (2.3-7.9); NEUT % 72.7 % (47.0-73.0); PLATELET COUNT AUTOMATED 298 10*3/uL (130-400); RED BLOOD COUNT 4.52 10*6/uL (4.10-5.10); RED CELL DISTRI WIDTH 16.9 % (0-14.5); WHITE BLOOD COUNT 8.7 10*3/uL (4.8-10.8)
[2023-03-17 11:13] LABS: POTASSIUM 4.3 mmol/L (3.4-5.1); TOTAL PROTEIN 7.8 gm/dL (6.0-8.0)
[2023-03-17] MEDS ORDERED: REGLAN10 M1 PO (11:50)
[2023-03-17] MEDS ORDERED: IBU800 M2 PO (11:50)
== END 2023-03-17 11:57 | disposition home or self-care (01) ==
LOC: ED 10:02
PROVIDERS: Emergency Medicine
DX: R51.9 Headache, unspecified (principal); R11.2 Nausea with vomiting, unspecified; R19.7 Diarrhea, unspecified; R20.0 Anesthesia of skin; M79.7 Fibromyalgia; I10 Essential (primary) hypertension; E78.5 Hyperlipidemia, unspecified; E03.9 Hypothyroidism, unspecified; Z88.1 Allergy status to other antibiotic agents; Z88.8 Allergy status to other drugs, medicaments and biological substances; Z79.899 Other long term (current) drug therapy; Z79.2 Long term (current) use of antibiotics; Z98.890 Other specified postprocedural states; Z90.49 Acquired absence of other specified parts of digestive tract; Z90.89 Acquired absence of other organs; Z87.442 Personal history of urinary calculi

== ENCOUNTER → 2023-07-28 | Outpatient (CLI) | payer OTHER ==
[~2023-07-28] MED LIST changes: +IBU800 M2 PO; +REGLAN10 M1 PO
== END | disposition home or self-care (01) ==
LOC: RAD 12:34
PROVIDERS: ATTEND Nurse Practitioner Gerontology
DX: N20.0 Calculus of kidney (principal); Z90.49 Acquired absence of other specified parts of digestive tract; Z96.0 Presence of urogenital implants

== ENCOUNTER 2023-08-26 08:51 | Emergency (ER) | payer OTHER ==
[~2023-08-26] VITALS: Ht 160 cm; Wt 152.0 kg
[~2023-08-26 08:51] MED LIST changes: -LEVOTHYROXINE0.2 MG PO; +LEVOTHYROXINE50 MCG PO
[2023-08-26] MEDS ORDERED: VIBRA-TAB100 MG PO (14:50)
[2023-08-28] MEDS ORDERED: FLUTICASONE-SA1 EAC4 INH (18:19)
[2023-08-28] MEDS ORDERED: PANTOPRAZOLE SO40 M2 PO (18:26)
[2023-08-28] MEDS ORDERED: AMLODIPINE BESYL5 MG PO (18:29)
[2023-08-30] MEDS ORDERED: VIBRA-TAB100 MG PO (11:58)
[2023-08-30] MEDS ORDERED: Ipratropium Brom3 ML INH (11:58)
[2023-08-30] MEDS ORDERED: AEROECLIPSE II1 EACH MC (11:58)
== END 2023-08-26 15:17 | disposition home or self-care (01) ==
LOC: ED 08:51
DX: Z90.89 Acquired absence of other organs (principal); L03.115 Cellulitis of right lower limb; I89.0 Lymphedema, not elsewhere classified; Z88.8 Allergy status to other drugs, medicaments and biological substances; Z88.1 Allergy status to other antibiotic agents; Z79.899 Other long term (current) drug therapy; Z90.49 Acquired absence of other specified parts of digestive tract; Z98.890 Other specified postprocedural states

== ENCOUNTER 2023-11-22 08:19 | Emergency (ER) | payer OTHER ==
[~2023-11-22] VITALS: Ht 160 cm; Wt 149.7 kg
[~2023-11-22 08:19] MED LIST changes: +AEROECLIPSE II1 EACH MC; +AMLODIPINE BESYL5 MG PO; +FLUTICASONE-SA1 EAC4 INH; +Ipratropium Brom3 ML INH; +PANTOPRAZOLE SO40 M2 PO; +VIBRA-TAB100 MG PO
[2023-11-22 08:47] LABS: BASO % 0.6 % (0.0-1.0); EOS # 0.2 10*3/uL (0.0-0.4); EOS % 2.6 % (1.0-4.0); HEMATOCRIT 36.1 % (37.0-47.0); LYMPH # 1.2 10*3/uL (1.3-4.4); LYMPH % 16.5 % (27.0-41.0); MEAN CELL VOLUME 94.3 fl (81.0-99.0); MEAN CORPUSCULAR HGB 26.9 pg (27.0-31.0); MEAN CORPUSCULAR HGB CONC 28.5 g/dl (33.0-37.0); MEAN PLATELET VOLUME 8.9 fl (9.6-12.3); MONO # 0.5 10*3/uL (0.1-1.0); MONO % 7.2 % (3.0-9.0); NEUT # 5.1 10*3/uL (2.3-7.9); NEUT % 72.7 % (47.0-73.0); PLATELET COUNT AUTOMATED 299 10*3/uL (130-400); RED BLOOD COUNT 3.83 10*6/uL (4.10-5.10); RED CELL DISTRI WIDTH 16.7 % (0-14.5)
[2023-11-22 09:06] LABS: POTASSIUM 4.1 mmol/L (3.4-5.1)
[2023-11-22] MEDS ORDERED: LASIX20 MG PO (09:36)
== END 2023-11-22 09:46 | disposition home or self-care (01) ==
LOC: ED 08:19
PROVIDERS: Student in an Organized Health Care Education/Training Program
DX: I89.0 Lymphedema, not elsewhere classified (principal); L03.116 Cellulitis of left lower limb; Z79.2 Long term (current) use of antibiotics; Z88.1 Allergy status to other antibiotic agents; Z88.8 Allergy status to other drugs, medicaments and biological substances; Z79.899 Other long term (current) drug therapy; Z90.49 Acquired absence of other specified parts of digestive tract; Z98.890 Other specified postprocedural states; Z90.89 Acquired absence of other organs; Z87.442 Personal history of urinary calculi

== ENCOUNTER → 2024-08-28 | Outpatient (CLI) | payer OTHER ==
[2024-08-28 11:01] LABS: BASO % 0.2 % (0.0-1.0); EOS # 0.1 10*3/uL (0.0-0.4); EOS % 1.2 % (1.0-4.0); HEMATOCRIT 38.8 % (37.0-47.0); MEAN CELL VOLUME 92.8 fl (81.0-99.0); MEAN CORPUSCULAR HGB 27.3 pg (27.0-31.0); MEAN CORPUSCULAR HGB CONC 29.4 g/dl (33.0-37.0); MEAN PLATELET VOLUME 9.1 fl (9.6-12.3); MONO # 0.8 10*3/uL (0.1-1.0); MONO % 7.3 % (3.0-9.0); NEUT # 8.1 10*3/uL (2.3-7.9); NEUT % 78.8 % (47.0-73.0); PLATELET COUNT AUTOMATED 367 10*3/uL (130-400); RED BLOOD COUNT 4.18 10*6/uL (4.10-5.10); RED CELL DISTRI WIDTH 14.8 % (0-14.5); RETICULOCYTE % 0.63 % (0.50-2.50); WHITE BLOOD COUNT 10.2 10*3/uL (4.8-10.8)
[2024-08-28 11:25] LABS: POTASSIUM 4.6 mmol/L (3.4-5.1); TOTAL PROTEIN 7.5 gm/dL (6.0-8.0)
== END | disposition home or self-care (01) ==
LOC: LAB 10:40
PROVIDERS: ATTEND Family Medicine
DX: E55.9 Vitamin D deficiency, unspecified (principal); R79.89 Other specified abnormal findings of blood chemistry; R53.83 Other fatigue; E78.5 Hyperlipidemia, unspecified

== ENCOUNTER → 2025-02-08 | Outpatient (CLI) | payer OTHER ==
[~2025-02-08] MED LIST changes: +ADVAIR 250/501 EA INH; +MEROPENEM-500 MG/50 IV; +POTASSIUM CITR15 ME1 PO; +SPIRIVA RESPIMAT4 GM INH
== END | disposition home or self-care (01) ==
LOC: WOUNDCARE 02:11
PROVIDERS: ATTEND Nurse Practitioner Family
DX: L03.116 Cellulitis of left lower limb (principal); S80.822A Blister (nonthermal), left lower leg, initial encounter; I89.0 Lymphedema, not elsewhere classified; R60.9 Edema, unspecified; I12.9 Hypertensive chronic kidney disease with stage 1 through stage 4 chronic kidney disease, or unspecified chronic kidney disease; N18.30 Chronic kidney disease, stage 3 unspecified; I87.2 Venous insufficiency (chronic) (peripheral); K57.90 Diverticulosis of intestine, part unspecified, without perforation or abscess without bleeding; J45.909 Unspecified asthma, uncomplicated; G62.9 Polyneuropathy, unspecified; E03.9 Hypothyroidism, unspecified; E78.5 Hyperlipidemia, unspecified; E66.01 Morbid (severe) obesity due to excess calories; Z68.44 Body mass index [BMI] 60.0-69.9, adult; Z90.49 Acquired absence of other specified parts of digestive tract; Z98.890 Other specified postprocedural states; Z79.899 Other long term (current) drug therapy; X58.XXXA Exposure to other specified factors, initial encounter; Y93.89 Activity, other specified; Y92.89 Other specified places as the place of occurrence of the external cause; Y99.8 Other external cause status

== ENCOUNTER 2025-02-11 10:48 | Emergency (ER) | payer OTHER ==
[~2025-02-11] VITALS: Ht 160 cm; Wt 154.2 kg
[2025-02-11 13:50] LABS: BASO # 0.1 10*3/uL (0.0-0.1); BASO % 0.6 % (0.0-1.0); EOS # 0.1 10*3/uL (0.0-0.4); EOS % 1.7 % (1.0-4.0); HEMATOCRIT 41.1 % (37.0-47.0); MEAN CELL VOLUME 97.4 fl (81.0-99.0); MEAN CORPUSCULAR HGB 28.9 pg (27.0-31.0); MEAN CORPUSCULAR HGB CONC 29.7 g/dl (33.0-37.0); MEAN PLATELET VOLUME 9.3 fl (9.6-12.3); MONO # 0.5 10*3/uL (0.1-1.0); MONO % 6.7 % (3.0-9.0); NEUT # 6.4 10*3/uL (2.3-7.9); NEUT % 79.8 % (47.0-73.0); PLATELET COUNT AUTOMATED 294 10*3/uL (130-400); RED BLOOD COUNT 4.22 10*6/uL (4.10-5.10); RED CELL DISTRI WIDTH 14.2 % (0-14.5); WHITE BLOOD COUNT 8.1 10*3/uL (4.8-10.8)
== END 2025-02-11 16:31 | disposition home or self-care (01) ==
LOC: ED 10:48
PROVIDERS: Nurse Practitioner Family
DX: L03.116 Cellulitis of left lower limb (principal); Z45.2 Encounter for adjustment and management of vascular access device; I10 Essential (primary) hypertension; J44.9 Chronic obstructive pulmonary disease, unspecified; E03.9 Hypothyroidism, unspecified; Z79.899 Other long term (current) drug therapy; Z88.1 Allergy status to other antibiotic agents; Z88.8 Allergy status to other drugs, medicaments and biological substances; Z90.49 Acquired absence of other specified parts of digestive tract; Z90.89 Acquired absence of other organs; Z98.890 Other specified postprocedural states

== ENCOUNTER → 2025-02-15 | Outpatient (CLI) | payer OTHER | END | disposition home or self-care (01) | LOC: WOUNDCARE 03:15 | PROVIDERS: ATTEND Nurse Practitioner Family | DX: L03.116 Cellulitis of left lower limb (principal); S80.822D Blister (nonthermal), left lower leg, subsequent encounter; I89.0 Lymphedema, not elsewhere classified; R60.9 Edema, unspecified; I12.9 Hypertensive chronic kidney disease with stage 1 through stage 4 chronic kidney disease, or unspecified chronic kidney disease; N18.9 Chronic kidney disease, unspecified; I87.2 Venous insufficiency (chronic) (peripheral); J45.909 Unspecified asthma, uncomplicated; E03.9 Hypothyroidism, unspecified; G62.9 Polyneuropathy, unspecified; K57.90 Diverticulosis of intestine, part unspecified, without perforation or abscess without bleeding; M79.7 Fibromyalgia; E66.01 Morbid (severe) obesity due to excess calories; Z68.44 Body mass index [BMI] 60.0-69.9, adult; Z90.49 Acquired absence of other specified parts of digestive tract; Z98.890 Other specified postprocedural states; Z79.899 Other long term (current) drug therapy; X58.XXXD Exposure to other specified factors, subsequent encounter ==

== ENCOUNTER → 2025-02-22 | Outpatient (CLI) | payer OTHER | END | disposition home or self-care (01) | LOC: WOUNDCARE 01:38 | PROVIDERS: ATTEND Nurse Practitioner Family | DX: L03.116 Cellulitis of left lower limb (principal); S80.822D Blister (nonthermal), left lower leg, subsequent encounter; R60.9 Edema, unspecified; I89.0 Lymphedema, not elsewhere classified; I87.2 Venous insufficiency (chronic) (peripheral); I12.9 Hypertensive chronic kidney disease with stage 1 through stage 4 chronic kidney disease, or unspecified chronic kidney disease; N18.9 Chronic kidney disease, unspecified; J45.909 Unspecified asthma, uncomplicated; G62.9 Polyneuropathy, unspecified; E03.9 Hypothyroidism, unspecified; E78.5 Hyperlipidemia, unspecified; E66.01 Morbid (severe) obesity due to excess calories; Z68.44 Body mass index [BMI] 60.0-69.9, adult; Z90.49 Acquired absence of other specified parts of digestive tract; Z98.890 Other specified postprocedural states; Z79.899 Other long term (current) drug therapy; X58.XXXD Exposure to other specified factors, subsequent encounter ==

== ENCOUNTER → 2025-03-02 | Outpatient (CLI) | payer OTHER ==
[2025-03-02 10:10] LABS: BASO # 0.0 10*3/uL (0.0-0.1); BASO % 0.6 % (0.0-1.0); EOS # 0.2 10*3/uL (0.0-0.4); EOS % 3.4 % (1.0-4.0); MEAN CELL VOLUME 96.5 fl (81.0-99.0); MEAN CORPUSCULAR HGB 28.8 pg (27.0-31.0); MEAN PLATELET VOLUME 9.5 fl (9.6-12.3); MONO # 0.5 10*3/uL (0.1-1.0); MONO % 7.4 % (3.0-9.0); NEUT # 5.0 10*3/uL (2.3-7.9); NEUT % 71.1 % (47.0-73.0); NUCLEATED RED BLOOD CELL 0.0 % (0.0-0.0); NUCLEATED RED BLOOD CELL 0.0 10*3/uL (0.0-0.0); PLATELET COUNT AUTOMATED 278 10*3/uL (130-400); RED CELL DISTRI WIDTH 14.3 % (0-14.5)
[2025-03-02 10:53] LABS: BUN 35.0 mg/dl (9-23); SGPT/ALT 24.0 U/L (5-49)
== END | disposition home or self-care (01) ==
LOC: LAB 00:56 → WOUNDCARE 00:56
PROVIDERS: ATTEND Nurse Practitioner Family
DX: I12.9 Hypertensive chronic kidney disease with stage 1 through stage 4 chronic kidney disease, or unspecified chronic kidney disease (principal); N18.9 Chronic kidney disease, unspecified; D63.1 Anemia in chronic kidney disease

== ENCOUNTER → 2025-03-07 | Outpatient (CLI) | payer OTHER | END | disposition home or self-care (01) | LOC: SDC 02:22 → WOUNDCARE 02:22 | PROVIDERS: ATTEND Nurse Practitioner Family | DX: Z45.2 Encounter for adjustment and management of vascular access device (principal); I10 Essential (primary) hypertension; J44.9 Chronic obstructive pulmonary disease, unspecified; E03.9 Hypothyroidism, unspecified; M79.7 Fibromyalgia; G62.9 Polyneuropathy, unspecified; G43.909 Migraine, unspecified, not intractable, without status migrainosus; L03.90 Cellulitis, unspecified; Z98.891 History of uterine scar from previous surgery; Z98.890 Other specified postprocedural states; Z90.89 Acquired absence of other organs; Z83.3 Family history of diabetes mellitus; Z88.8 Allergy status to other drugs, medicaments and biological substances ==

== ENCOUNTER 2025-03-14 10:44 | Emergency (ER) | payer OTHER ==
[~2025-03-14] VITALS: Ht 160 cm; Wt 154.2 kg
== END 2025-03-14 14:00 | disposition home or self-care (01) ==
LOC: ED 10:44
DX: T82.524A Displacement of infusion catheter, initial encounter (principal); I12.9 Hypertensive chronic kidney disease with stage 1 through stage 4 chronic kidney disease, or unspecified chronic kidney disease; N18.9 Chronic kidney disease, unspecified; Z45.89 Encounter for adjustment and management of other implanted devices; Z88.1 Allergy status to other antibiotic agents; Z88.8 Allergy status to other drugs, medicaments and biological substances; Z79.899 Other long term (current) drug therapy; Z90.49 Acquired absence of other specified parts of digestive tract; Z98.890 Other specified postprocedural states; Z90.89 Acquired absence of other organs; Z87.442 Personal history of urinary calculi; Y84.8 Other medical procedures as the cause of abnormal reaction of the patient, or of later complication, without mention of misadventure at the time of the procedure; Y92.89 Other specified places as the place of occurrence of the external cause

== ENCOUNTER → 2025-06-27 | Outpatient (CLI) | payer OTHER | END | disposition home or self-care (01) | LOC: RAD 09:12 | PROVIDERS: ATTEND Urology | DX: N20.0 Calculus of kidney (principal); M47.816 Spondylosis without myelopathy or radiculopathy, lumbar region ==